=== PATIENT | female | born 1995 | race Caucasian/White ===

== ENCOUNTER 2016-07-18 20:20 | Emergency (ER) | payer SELFPAY ==
--- NOTE | 2016-07-18 20:24 | EDM.PDOC ---
ED HISTORY OF PRESENT ILLNESS - General Chief Complaint: Respiratory Problem Stated Complaint: PT HAS PNEUMONIA Time Seen by Provider: 07/18/16 20:24 Source of Information: Reports: Patient - History of Present Illness INITIAL COMMENTS - FREE TEXT/NARRATIVE: HISTORY AND PHYSICAL: History of present illness: [] Patient was seen on the one week of cough, he was treated with Levaquin and Cheratussin at that time, chest x-ray was significant for small infiltrate on the left. She has continued cough and now wheeze no fever nausea vomiting chills sweats chest pain headache dizziness or palpitation Patient had negative hCG 5 days prior she has not had sexual intercourse since Review of systems: As per history of present illness and below otherwise all systems reviewed and negative. Past medical history: As per history of present illness and as reviewed below otherwise noncontributory. Surgical history: As per history of present illness and as reviewed below otherwise noncontributory. Social history: No reported history of drug or alcohol abuse. Family history: As per history of present illness and as reviewed below otherwise noncontributory. Physical exam: HEENT: Atraumatic, normocephalic, pupils reactive, negative for conjunctival pallor or scleral icterus, mucous membranes moist, throat clear, neck supple, nontender, trachea midline. Lungs: Clear to auscultation, breath sounds equal bilaterally, chest nontender. Heart: S1S2, regular, negative for clicks, rubs, or JVD. Abdomen: Soft, nondistended, nontender. Negative for masses or hepatosplenomegaly. Negative for costovertebral tenderness. Pelvis: Stable nontender. Genitourinary: Deferred. Rectal: Deferred. Extremities: Atraumatic, negative for cords or calf pain. Neurovascular unremarkable. Neuro: Awake, alert, oriented. Cranial nerves II through XII unremarkable. Cerebellum unremarkable. Motor and sensory unremarkable throughout. Exam nonfocal. Diagnostics: [] Repeat chest x-ray 2 views Influenza Therapeutics: [] Dual neb Solu-Medrol 125 mg IM Chest pain Medrol Dosepak Complete previous medication Impression: [] Infiltrate on previous chest x-ray has cleared Acute bronchitis Likely sequela of influenza Definitive disposition and diagnosis as appropriate pending reevaluation and review of above. - Related Data Allergies/ADRs: Allergies Allergy/AdvReac Type Severity Reaction Status Date / Time No Known Allergies Allergy Verified 07/13/16 18:46 Home Meds: Home Meds . [No Known Home Meds] 07/13/16 [History] Past Medical History - Past Health History Medical/Surgical History: Denies Medical/Surgical History - Infectious Disease History Infectious Disease History: Reports: Chicken pox Social & Family History - Tobacco Use Smoking Status *Q: Current Every Day Smoker Years of Tobacco use: 4 Packs/Tins Daily: 0.2 - Caffeine Use Caffeine Use: Reports: Soda - Recreational Drug Use Recreational Drug Use: No ED ROS GENERAL - Review of Systems Review Of Systems: See Below ED EXAM, GENERAL - Physical Exam Exam: See Below Course - Vital Signs Last Recorded V/S: Last Vital Signs Temp 36.7 C 07/18/16 20:33 Pulse 109 H 07/18/16 20:33 Resp 20 07/18/16 20:33 BP 135/100 H 07/18/16 20:33 Pulse Ox 97 07/18/16 20:33 - Orders/Labs/Meds Orders: Active Orders 24 hr Category Date Time Status RT Aerosol Therapy [RC] ASDIRECTED Care 07/18/16 20:38 Active Chest 2V [CR] Stat Exams 07/18/16 20:24 Taken INFLUENZA A+B AG SCREEN [RM] Stat Lab 07/18/16 20:55 Received Meds: Medications Discontinued Medications Generic Name Dose Route Start Last Admin Trade Name Kimberly PRN Reason Stop Dose Admin Albuterol/Ipratropium 3 ml 07/18/16 20:37 07/18/16 20:44 Duoneb 3.0-0.5 Mg/3 Ml NEB 07/18/16 20:38 3 ml ONETIME ONE Administration Methylprednisolone Sodium Succinate 125 mg 07/18/16 20:37 07/18/16 20:53 Solu-Medrol IM 07/18/16 20:38 125 mg ONETIME ONE Administration Departure - Departure Time of Disposition: 21:23 Disposition: Home, Self-Care 01 Condition: good Clinical Impression: Acute bronchitis Forms: ED Department Discharge Additional Instructions: Complete previous medication as directed New medications as prescribed Followup with primary care as needed The following information is given to patients seen in the emergency department who are being discharged to home. This information is to outline your options for follow-up care. We provide all patients seen in our emergency department with a follow-up referral. The need for follow-up, as well as the timing and circumstances, are variable depending upon the specifics of your emergency department visit. If you don't have a primary care physician on staff, we will provide you with a referral. We always advise you to contact your personal physician following an emergency department visit to inform them of the circumstance of the visit and for follow-up with them and/or the need for any referrals to a consulting specialist. The emergency department will also refer you to a specialist when appropriate. This referral assures that you have the opportunity for follow-up care with a specialist. All of these measure are taken in an effort to provide you with optimal care, which includes your follow-up. Under all circumstances we always encourage you to contact your private physician who remains a resource for coordinating your care. When calling for follow-up care, please make the office aware that this follow-up is from your recent emergency room visit. If for any reason you are refused follow-up, please contact the [facility] emergency department at and asked to speak to the emergency department charge nurse. - My Orders Last 24 Hours: My Active Orders 07/18/16 20:24 Chest 2V [CR] Stat 07/18/16 20:38 RT Aerosol Therapy [RC] ASDIRECTED 07/18/16 20:55 INFLUENZA A+B AG SCREEN [RM] Stat - Assessment/Plan Last 24 Hours: My Active Orders 07/18/16 20:24 Chest 2V [CR] Stat 07/18/16 20:38 RT Aerosol Therapy [RC] ASDIRECTED 07/18/16 20:55 INFLUENZA A+B AG SCREEN [RM] Stat
[2016-07-18] MEDS ORDERED: methylPREDNISolone Sodium Succinate 125 MG/2 ML SDV IM ONE (20:37)
[2016-07-18] MEDS ORDERED: Albuterol/Ipratropium 3.0-0.5 MG/3 ML Neb Soln NEB ONE (20:37)
[2016-07-18 21:42] VITALS: BP 127/89
--- NOTE | 2016-07-19 17:52 | CR ---
EXAM DATE: 07/18/16 PATIENT'S AGE: 21 Patient: AAYUSH OWEN Facility: [place], [place] Site . Site : 1995 Study: XRay Chest [id number]/26/2017 9:09:08 PM Ordering Physician: Doctor Honeycutt Final Report: INDICATION: Pneumonia. Technique: PA and lateral chest x-ray. Comparison: Chest x-ray 07/13/2016. Findings: Heart size is normal. The mild opacity in the left lung base seen previously is no longer seen. Lungs are clear. Chest otherwise negative without acute disease. Dictated by Markus Yen MD @ Jul 18 2016 9:31PM (Electronic Signature) Report Signed by Proxy and Original Signed Document filed in the Medical Record. MTDD
== END 2016-07-18 21:41 | disposition home or self-care (01) ==
LOC: MW.ED 20:20
DX: J20.9 Acute bronchitis, unspecified (principal); F17.210 Nicotine dependence, cigarettes, uncomplicated
CPT/HCPCS: 71020; 87804; 94664; 96372; 99284; J2930

== ENCOUNTER 2016-08-09 17:51 | Emergency (ER) | payer SELFPAY ==
[2016-08-09] MEDS ORDERED: Albuterol/Ipratropium 3.0-0.5 MG/3 ML Neb Soln NEB ONE (18:25)
--- NOTE | 2016-08-09 18:56 | EDM.PDOC ---
ED HISTORY OF PRESENT ILLNESS - General Chief Complaint: Respiratory Problem Stated Complaint: PT HAS BRONCHITIS Time Seen by Provider: 08/09/16 18:20 Source of Information: Reports: Patient History Limitations: Reports: No limitations - History of Present Illness INITIAL COMMENTS - FREE TEXT/NARRATIVE: History of present illness: [21-year-old female returning with complaint of cough status post pneumonia resolution. Patient indicates that she had medication for bronchitis but has run out and now she feels like her symptoms are coming back.] Review of systems: As per history of present illness and below otherwise all systems reviewed and negative. Past medical history: As per history of present illness and as reviewed below otherwise noncontributory. Surgical history: As per history of present illness and as reviewed below otherwise noncontributory. Social history: No reported history of drug or alcohol abuse. Family history: As per history of present illness and as reviewed below otherwise noncontributory. Physical exam: HEENT: Atraumatic, normocephalic, pupils reactive, negative for conjunctival pallor or scleral icterus, mucous membranes moist, throat clear, neck supple, nontender, trachea midline. Lungs: End expiratory wheeze noted in the upper lobes bilaterally, otherwise breath sounds equal bilaterally, chest nontender. Heart: S1S2, regular, negative for clicks, rubs, or JVD. Abdomen: Soft, nondistended, nontender. Negative for masses or hepatosplenomegaly. Negative for costovertebral tenderness. Pelvis: Stable nontender. Genitourinary: Deferred. Rectal: Deferred. Extremities: Atraumatic, negative for cords or calf pain. Neurovascular unremarkable. Neuro: Awake, alert, oriented. Cranial nerves II through XII unremarkable. Cerebellum unremarkable. Motor and sensory unremarkable throughout. Exam nonfocal. Diagnostics: [] Therapeutics: [Duo neb] Impression: [Bronchitis] Plan: [Inhaler, Medrol Dosepak,spacer chamber] Definitive disposition and diagnosis as appropriate pending reevaluation and review of above. - Related Data Allergies/ADRs: Allergies Allergy/AdvReac Type Severity Reaction Status Date / Time No Known Allergies Allergy Verified 08/09/16 18:09 Home Meds: Home Meds Albuterol [Proventil HFA] 6.7 gm INH Q6H #1 inhaler 08/09/16 [Rx] Inhaler, Assist Devices [Space Chamber Plus] 1 each MC DAILY 30 Days 08/09/16 [ Rx] methylPREDNISolone [Medrol] 4 mg PO ASDIRECTED #21 dospk 08/09/16 [Rx] Past Medical History - Past Health History Medical/Surgical History: Denies Medical/Surgical History HEENT History: Reports: None Cardiovascular History: Reports: None Respiratory History: Reports: Other (see below) Other Respiratory History: pneumonia. bronchitis Psychiatric History: Reports: None - Infectious Disease History Infectious Disease History: Reports: Chicken pox - Past Surgical History HEENT Surgical History: Reports: None Cardiovascular Surgical History: Reports: None Female Surgical History: Reports: section Social & Family History - Family History Family Medical History: Noncontributory - Tobacco Use Smoking Status *Q: Former Smoker Years of Tobacco use: 4 Packs/Tins Daily: 0.2 Tobacco Use Comment: quit almost 1 month Second Hand Smoke Exposure: No - Caffeine Use Caffeine Use: Reports: Soda - Recreational Drug Use Recreational Drug Use: No ED ROS GENERAL - Review of Systems Review Of Systems: See Below (See history of present illness) ED EXAM, GENERAL - Physical Exam Exam: See Below (See history of present illness) Course - Vital Signs Last Recorded V/S: Last Vital Signs Temp 36.6 C 08/09/16 18:09 Pulse 109 H 08/09/16 18:09 Resp 16 08/09/16 18:09 BP 121/77 08/09/16 18:09 Pulse Ox 99 08/09/16 18:09 - Orders/Labs/Meds Orders: Active Orders 24 hr Category Date Time Status RT Aerosol Therapy [RC] ASDIRECTED Care 08/09/16 18:25 Active Meds: Medications Discontinued Medications Generic Name Dose Route Start Last Admin Trade Name Neftalyq PRN Reason Stop Dose Admin Albuterol/Ipratropium 3 ml 08/09/16 18:25 08/09/16 18:32 Duoneb 3.0-0.5 Mg/3 Ml NEB 08/09/16 18:26 3 ml ONETIME ONE Administration Departure - Departure Time of Disposition: 19:05 Disposition: Home, Self-Care 01 Condition: good Clinical Impression: Acute bronchitis Qualifiers: Bronchitis organism: unspecified organism Qualified Code(s): J20.9 - Acute bronchitis, unspecified Prescriptions: Albuterol [Proventil HFA] 6.7 gm INH Q6H #1 inhaler Inhaler, Assist Devices [Space Chamber Plus] 1 each MC DAILY 30 Days methylPREDNISolone [Medrol] 4 mg PO ASDIRECTED #21 dospk Forms: ED Department Discharge Additional Instructions: The following information is given to patients seen in the emergency department who are being discharged to home. This information is to outline your options for follow-up care. We provide all patients seen in our emergency department with a follow-up referral. The need for follow-up, as well as the timing and circumstances, are variable depending upon the specifics of your emergency department visit. If you don't have a primary care physician on staff, we will provide you with a referral. We always advise you to contact your personal physician following an emergency department visit to inform them of the circumstance of the visit and for follow-up with them and/or the need for any referrals to a consulting specialist. The emergency department will also refer you to a specialist when appropriate. This referral assures that you have the opportunity for follow-up care with a specialist. All of these measure are taken in an effort to provide you with optimal care, which includes your follow-up. Under all circumstances we always encourage you to contact your private physician who remains a resource for coordinating your care. When calling for follow-up care, please make the office aware that this follow-up is from your recent emergency room visit. If for any reason you are refused follow-up, please contact the [facility] Emergency Department at and asked to speak to the emergency department charge nurse. Take medication as directed Followup with primary care provider one to 2 days Return to ED as needed as discussed - My Orders Last 24 Hours: My Active Orders 08/09/16 18:25 RT Aerosol Therapy [RC] ASDIRECTED - Assessment/Plan Last 24 Hours: My Active Orders 08/09/16 18:25 RT Aerosol Therapy [RC] ASDIRECTED
[2016-08-09 19:16] VITALS: BP 116/73
== END 2016-08-09 19:11 | disposition home or self-care (01) ==
LOC: MW.ED 17:51
DX: J20.9 Acute bronchitis, unspecified (principal); Z79.899 Other long term (current) drug therapy; Z87.891 Personal history of nicotine dependence
CPT/HCPCS: 94664; 99283

== ENCOUNTER 2016-09-25 17:59 | Emergency (ER) | payer SELFPAY ==
[2016-09-25] MEDS ORDERED: Sodium Chloride 0.9% 1,000 ML IV ONE (18:28)
[2016-09-25] MEDS ORDERED: Sodium Chloride 0.9% 2.5 ML Syringe FLUSH PRN (18:29)
[2016-09-25] MEDS ORDERED: Sodium Chloride 0.9% 10 ML Syringe FLUSH PRN (18:29)
--- NOTE | 2016-09-25 18:34 | EDM.PDOC ---
<Pam Fraire - Last Filed: 09/25/16 19:27> ED HPI GENERAL MEDICAL PROBLEM - General Chief Complaint: Neurological Problem Stated Complaint: UNK Time Seen by Provider: 09/25/16 18:22 - History of Present Illness INITIAL COMMENTS - FREE TEXT/NARRATIVE: HISTORY AND PHYSICAL: History of present illness: The patient is a 21-year-old female with no stated medical problems who presents after a brief syncopal event while she was sitting on the toilet urinating. The patient states this has happened many times in the past but it usually only during her last 2 pregnancies. Patient says she's been feeling fine with no systemic complaints the last few days and has had no fevers chills cough chest pain shortness of breath abdominal pain vomiting or diarrhea. She's had no urinary complaints and her last regular period was September 09. She states she uses control and does not think that she is . She says she went to go to the bathroom and was sitting on the toilet when she felt very hot and flushed and then she felt like she had some tightness in her upper body and then she had a brief fainting episode where she fell off to the right side and hit her right forehead on the ground and she was immediately found by family because they heard "a bump". Patient also states she was only out briefly and felt a little nauseated right before she passed out but did not feel nauseated afterwards. She has no headache facial pain neck or back pain and no extremity complaints. She has no chest pain palpitations or shortness of breath. She complains of some mild pain at the laceration area only. She currently does not feel lightheaded Review of systems: As per history of present illness and below otherwise all systems reviewed and negative. Past medical history: As per history of present illness and as reviewed below otherwise noncontributory. Surgical history: As per history of present illness and as reviewed below otherwise noncontributory. Social history: No reported history of drug or alcohol abuse. Family history: As per history of present illness and as reviewed below otherwise noncontributory. Physical exam: General: Well-developed well-nourished female who is age-appropriate and moving all extremities without issue and is speaking clearly and easily in ED. HEENT: Atraumatic except for a 1.0 cm laceration seen just above the lateral aspect of her right eyebrow without much soft tissue swelling and no palpable bony deformities. There is no active bleeding. EOMs are intact,, normocephalic, pupils reactive, negative for conjunctival pallor or scleral icterus, mucous membranes moist, throat clear, neck supple, nontender, trachea midline. TMs are normal bilaterally, there are no midline step-offs or defects of the cervical spine and no other scalp defects deformities or swellings appreciated. Lungs: Clear to auscultation, breath sounds equal bilaterally, chest nontender. Heart: S1S2, regular, negative for clicks, rubs, or JVD. Abdomen: Soft, nondistended, nontender. Negative for masses or hepatosplenomegaly. Negative for costovertebral tenderness. Pelvis: Stable nontender. No lateral hip tenderness Genitourinary: Deferred. Rectal: Deferred. Extremities: Atraumatic, negative for cords or calf pain. Neurovascular unremarkable. Full range of motion without any defects or deficits and no tenderness at palpation Neuro: Awake, alert, oriented. Cranial nerves II through XII unremarkable. Cerebellum unremarkable. Motor and sensory unremarkable throughout. Exam nonfocal. Back: There are no midline step-offs tenderness or defects of the thoracic or lumbar spine no soft tissue abrasions ecchymosis or deformities and no posterior rib or posterior pelvis tenderness Diagnostics: EKG CBC CMP troponin serum hCG UA CT scan of the head orthostatic vitals Therapeutics: IV O2 monitor IV fluids wound care Impression: Brief syncopal event with right eyebrow laceration Definitive disposition and diagnosis as appropriate pending reevaluation and review of above. Treatments STUDENT SERVICES DEAN: Reports: Spinal immobilization Right Side of Head Pain Score (Numeric/FACES): 7 - Related Data Allergies Allergy/AdvReac Type Severity Reaction Status Date / Time No Known Allergies Allergy Verified 09/25/16 18:04 Home Meds: Home Meds Albuterol [Proventil HFA] 6.7 gm INH Q6H #1 inhaler 08/09/16 [Rx] Inhaler, Assist Devices [Space Chamber Plus] 1 each MC DAILY 30 Days 08/09/16 [ Rx] methylPREDNISolone [Medrol] 4 mg PO ASDIRECTED #21 dospk 08/09/16 [Rx] Past Medical History - Past Health History Medical/Surgical History: Denies Medical/Surgical History HEENT History: Reports: None Cardiovascular History: Reports: None Respiratory History: Reports: Asthma Other Respiratory History: pneumonia. 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: Neurological History: Reports: Other (see below) Other Neuro History: Sycope Psychiatric History: Reports: None - Infectious Disease History Infectious Disease History: Reports: Chicken pox - Past Surgical History HEENT Surgical History: Reports: None Cardiovascular Surgical History: Reports: None Female Surgical History: Reports: section Social & Family History - Family History Family Medical History: Noncontributory - Tobacco Use Smoking Status *Q: Current Every Day Smoker Years of Tobacco use: 3 Packs/Tins Daily: 1 Second Hand Smoke Exposure: No - Caffeine Use Caffeine Use: Reports: Soda - Recreational Drug Use Recreational Drug Use: No Course - Vital Signs Last Recorded V/S: Last Vital Signs Temp 36.6 C 09/25/16 18:04 Pulse 103 H 09/25/16 18:04 Resp 20 09/25/16 18:04 BP 123/73 09/25/16 18:04 Pulse Ox 98 09/25/16 18:28 Orthostatic Blood Pressure [ 124/83 Standing] Orthostatic Blood Pressure [ 113/82 Sitting] Orthostatic Blood Pressure [ 118/78 Supine] - Orders/Labs/Meds Orders: Active Orders 24 hr Category Date Time Status Cardiac Monitoring [RC] . DIRECTED Care 09/25/16 18:28 Active EKG 12 Lead [EKG Documentation Completion] [RC] STAT Care 09/25/16 18:09 Active Orthostatic Vital Signs [RC] ASDIRECTED Care 09/25/16 18:29 Active Oxygen Therapy, ED [RC] ASDIRECTED Care 09/25/16 18:28 Active Pulse Oximetry [RC] ASDIRECTED Care 09/25/16 18:28 Active Head wo Cont [CT] Stat Exams 09/25/16 18:28 Taken Sodium Chloride 0.9% [Saline Flush] Med 09/25/16 18:29 Active 10 ml FLUSH ASDIRECTED PRN Sodium Chloride 0.9% [Saline Flush] Med 09/25/16 18:29 Active 2.5 ml FLUSH ASDIRECTED PRN Saline Lock Insert [OM.PC] Stat Oth 09/25/16 18:28 Ordered Medication Orders Sodium Chloride (Saline Flush) 10 ml FLUSH ASDIRECTED PRN PRN Reason: Keep Vein Open Sodium Chloride (Saline Flush) 2.5 ml FLUSH ASDIRECTED PRN PRN Reason: Keep Vein Open Labs: Laboratory Tests 09/25/16 09/25/16 09/25/16 Range/Units 18:22 18:22 18:22 WBC 10.94 (4.0-11.0) K/uL RBC 4.98 (4.30-5.90) M/uL Hgb 15.5 (12.0-16.0) g/dL Hct 44.8 (36.0-46.0) % MCV 90.0 (80.0-98.0) fL MCH 31.1 (27.0-32.0) pg MCHC 34.6 (31.0-37.0) g/dL RDW Std Deviation 44.2 (28.0-62.0) fl RDW Coeff of Matthew 13 (11.0-15.0) % Plt Count 370 (150-400) K/uL MPV 9.80 (7.40-12.00) fL Neut % (Auto) 58.4 (48.0-80.0) % Lymph % (Auto) 26.8 (16.0-40.0) % Edgar % (Auto) 9.7 (0.0-15.0) % Eos % (Auto) 4.8 (0.0-7.0) % Baso % (Auto) 0.3 (0.0-1.5) % Neut # (Auto) 6.4 H (1.4-5.7) K/uL Lymph # (Auto) 2.9 H (0.6-2.4) K/uL Edgar # (Auto) 1.1 H (0.0-0.8) K/uL Eos # (Auto) 0.5 (0.0-0.7) K/uL Baso # (Auto) 0.0 (0.0-0.1) K/uL Nucleated RBC % 0.0 /100WBC Nucleated RBCs # 0 K/uL Sodium 137 (136-146) mmol/L Potassium 3.7 (3.5-5.1) mmol/L Chloride 108 (98-110) mmol/L Carbon Dioxide 18 L (21-31) mmol/L BUN 14 (6.0-23.0) mg/dL Creatinine 0.8 (0.6-1.5) mg/dL Est Cr Clr Drug Dosing 79.23 mL/min Estimated GFR (MDRD) > 60.0 ml/min Glucose 71 (60-110) mg/dL Calcium 9.1 (8.8-10.8) mg/dL Total Bilirubin 0.6 (0.1-1.5) mg/dL AST 19 (5-40) IU/L ALT 12 (8-54) IU/L Alkaline Phosphatase 70 (40-150) Troponin I (0.0-0.29) NG/ML Total Protein 7.5 (6.0-8.0) g/dL Albumin 4.1 (3.5-5.0) g/dL Globulin 3.4 (2.0-3.5) g/dL Albumin/Globulin Ratio 1.2 L (1.3-2.8) HCG, Quant < 1.2 mIU/mL Urine Color Urine Appearance Urine pH (5.0-8.0) Ur Specific [place] (1.001-1.035) Urine Protein (NEGATIVE) mg/dL Urine Glucose (UA) (NEGATIVE) mg/dL Urine Ketones (NEGATIVE) mg/dL Urine Occult Blood (NEGATIVE) Urine Nitrite (NEGATIVE) Urine Bilirubin (NEGATIVE) Urine Urobilinogen (<2.0) EU/dL Ur Leukocyte Esterase (NEGATIVE) Urine RBC (0-2/HPF) Urine WBC (0-5/HPF) Ur Epithelial Cells (NONE-FEW) Urine Bacteria (NEGATIVE) Urine Mucus (NONE-MOD) 09/25/16 09/25/16 Range/Units 18:22 19:15 WBC (4.0-11.0) K/uL RBC (4.30-5.90) M/uL Hgb (12.0-16.0) g/dL Hct (36.0-46.0) % MCV (80.0-98.0) fL MCH (27.0-32.0) pg MCHC (31.0-37.0) g/dL RDW Std Deviation (28.0-62.0) fl RDW Coeff of Matthew (11.0-15.0) % Plt Count (150-400) K/uL MPV (7.40-12.00) fL Neut % (Auto) (48.0-80.0) % Lymph % (Auto) (16.0-40.0) % Edgar % (Auto) (0.0-15.0) % Eos % (Auto) (0.0-7.0) % Baso % (Auto) (0.0-1.5) % Neut # (Auto) (1.4-5.7) K/uL Lymph # (Auto) (0.6-2.4) K/uL Edgar # (Auto) (0.0-0.8) K/uL Eos # (Auto) (0.0-0.7) K/uL Baso # (Auto) (0.0-0.1) K/uL Nucleated RBC % /100WBC Nucleated RBCs # K/uL Sodium (136-146) mmol/L Potassium (3.5-5.1) mmol/L Chloride (98-110) mmol/L Carbon Dioxide (21-31) mmol/L BUN (6.0-23.0) mg/dL Creatinine (0.6-1.5) mg/dL Est Cr Clr Drug Dosing mL/min Estimated GFR (MDRD) ml/min Glucose (60-110) mg/dL Calcium (8.8-10.8) mg/dL Total Bilirubin (0.1-1.5) mg/dL AST (5-40) IU/L ALT (8-54) IU/L Alkaline Phosphatase (40-150) Troponin I < 0.10 (0.0-0.29) NG/ML Total Protein (6.0-8.0) g/dL Albumin (3.5-5.0) g/dL Globulin (2.0-3.5) g/dL Albumin/Globulin Ratio (1.3-2.8) HCG, Quant mIU/mL Urine Color YELLOW Urine Appearance CLEAR Urine pH 6.0 (5.0-8.0) Ur Specific [place] 1.010 (1.001-1.035) Urine Protein NEGATIVE (NEGATIVE) mg/dL Urine Glucose (UA) NEGATIVE (NEGATIVE) mg/dL Urine Ketones NEGATIVE (NEGATIVE) mg/dL Urine Occult Blood NEGATIVE (NEGATIVE) Urine Nitrite NEGATIVE (NEGATIVE) Urine Bilirubin NEGATIVE (NEGATIVE) Urine Urobilinogen 0.2 (<2.0) EU/dL Ur Leukocyte Esterase NEGATIVE (NEGATIVE) Urine RBC 0-2 (0-2/HPF) Urine WBC 0-2 (0-5/HPF) Ur Epithelial Cells FEW (NONE-FEW) Urine Bacteria RARE (NEGATIVE) Urine Mucus LIGHT (NONE-MOD) Meds: Medications Generic Name Dose Route Start Last Admin Trade Name Kimberly PRN Reason Stop Dose Admin Sodium Chloride 10 ml 09/25/16 18:29 Saline Flush FLUSH ASDIRECTED PRN Keep Vein Open Sodium Chloride 2.5 ml 09/25/16 18:29 Saline Flush FLUSH ASDIRECTED PRN Keep Vein Open Discontinued Medications Generic Name Dose Route Start Last Admin Trade Name Freolivia PRN Reason Stop Dose Admin Sodium Chloride 1,000 mls @ 999 mls/hr 09/25/16 18:28 09/25/16 18:34 Normal Saline IV 09/25/16 19:28 999 mls/hr STAT ONE Administration Departure - Departure Disposition: Home, Self-Care 01 Clinical Impression: Vasovagal near syncope Instructions: Facial Laceration, Syncope, [id number] Referrals: PCP,None [Primary Care Provider] - Forms: ED Department Discharge Additional Instructions: Please folow up with PCP in [facility] in 48 to 72hours. Return to the Emergency Room as needed and discussed. <Diana Hoffmann - Last Filed: 09/25/16 22:05> ED ROS GENERAL - Review of Systems Review Of Systems: ROS reveals no pertinent complaints other than HPI. ED EXAM, GENERAL - Physical Exam Exam: See Below (see dictation) ED GENERAL MEDICAL PROCEDURES - Laceration/Wound Repair Right Lateral Face Lac/wound length in cm: 1.5 Appearance: subcutaneous, linear Distal NVT: neuro & vascular intact, no tendon injury Exploration/Debridement/Repair: wound explored Closed with: steri-strips Drain placement: No Tetanus status addressed: Yes Complications: No Departure - Departure Time of Disposition: 21:30 Condition: good
[2016-09-25 19:14] LABS: CHLORIDE,CL 108 mmol/L (98-110); SODIUM,NA 137 mmol/L (136-146)
[2016-09-26 03:55] VITALS: BP 119/74
--- NOTE | 2016-09-27 17:27 | CT ---
MNEXAM DATE: 09/25/16 PATIENT'S AGE: 21 Patient: AAYUSH OWEN Facility: [place], [place] Site . Site : 1995 Study: CT Head wo cont [id number]/6/2017 7:48:11 PM Ordering Physician: Juno Orozco Final Report: INDICATION: syncope TECHNIQUE: CT Head without contrast. COMPARISON: None. FINDINGS: There is no sign of intracranial hemorrhage or mass effect. Ventricles and sulci are symmetric and midline. The harris-white differentiation is preserved. No abnormal intra-axial or extra-axial fluid collection. No acute disease of the visualized paranasal sinuses and mastoid air cells. No fracture evident. No scalp hematoma/laceration. IMPRESSION: No acute intracranial process. Dictated by: James Garcia MD @ 09/25/2016 20:07:26 (Electronic Signature) Report Signed by Proxy. CANDE
== END 2016-09-25 21:39 | disposition home or self-care (01) ==
LOC: MW.ED 17:59
DX: R55 Syncope and collapse (principal); S01.111A Laceration without foreign body of right eyelid and periocular area, initial encounter; J45.909 Unspecified asthma, uncomplicated; F17.210 Nicotine dependence, cigarettes, uncomplicated; W18.09XA Striking against other object with subsequent fall, initial encounter
CPT/HCPCS: 36415; 70450; 80053; 81001; 84484; 84702; 85025; 93005; 96360; 99285; J7040; 99284

== ENCOUNTER 2017-05-12 06:54 | Emergency (ER) | payer SELFPAY ==
[2017-05-12] MEDS ORDERED: Sodium Chloride 0.9% 1,000 ML IV ONE (07:15)
[2017-05-12] MEDS ORDERED: Ondansetron 4 MG/2 ML SDV IVPUSH ONE (07:15)
--- NOTE | 2017-05-12 07:18 | EDM.PDOC ---
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 OB has essentially signed off for now. See OB note for detailed information No fever chills sweats no chest pain shortness breath headache dizziness palpitation no urine symptoms Review of systems: As per history of present illness and below otherwise all systems reviewed and negative. Past medical history: As per history of present illness and as reviewed below otherwise noncontributory. Surgical history: As per history of present illness and as reviewed below otherwise noncontributory. Social history: No reported history of drug or alcohol abuse. Family history: As per history of present illness and as reviewed below otherwise noncontributory. Physical exam: HEENT: Atraumatic, normocephalic, pupils reactive, negative for conjunctival pallor or scleral icterus, mucous membranes moist, throat clear, neck supple, nontender, trachea midline. Lungs: Clear to auscultation, breath sounds equal bilaterally, chest nontender. Heart: S1S2, regular, negative for clicks, rubs, or JVD. Abdomen: Soft, nondistended, nontender. Negative for masses or hepatosplenomegaly. Negative for costovertebral tenderness. Pelvis: Stable nontender. Genitourinary: Deferred. Rectal: Deferred. Extremities: Atraumatic, negative for cords or calf pain. Neurovascular unremarkable. Neuro: Awake, alert, oriented. Cranial nerves II through XII unremarkable. Cerebellum unremarkable. Motor and sensory unremarkable throughout. Exam nonfocal. Diagnostics: [Lab as below ]Influenza Therapeutics: [1 L normal saline Zofran 8 mg IV ] Zofran 8 mg ODT every 8 hours when necessary #30 no refill Impression: []Viral syndrome 35 weeks with IUP Cervix is closed Definitive disposition and diagnosis as appropriate pending reevaluation and review of above. abdominal Pain Score (Numeric/FACES): 8 - Related Data Allergies Allergy/AdvReac Type Severity Reaction Status Date / Time No Known Allergies Allergy Verified 05/12/17 07:07 Home Meds: Home Meds PNV95/Ferrous Fumarate/FA [ Tablet] 1 each PO DAILY 05/12/17 [History] Past Medical History - Past Health History Medical/Surgical History: Denies Medical/Surgical History HEENT History: Reports: None Cardiovascular History: Reports: None Respiratory History: Reports: Asthma Other Respiratory History: pneumonia. 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: Neurological History: Reports: Other (See Below) Other Neuro History: Sycope Psychiatric History: Reports: None Endocrine/Metabolic History: Reports: None - Infectious Disease History Infectious Disease History: Reports: Chicken Pox - Past Surgical History HEENT Surgical History: Reports: None Cardiovascular Surgical History: Reports: None Female Surgical History: Reports: Section Social & Family History - Family History Family Medical History: Noncontributory - Tobacco Use Smoking Status *Q: Former Smoker Years of Tobacco use: 3 Packs/Tins Daily: 1 Used Tobacco, but Quit: Yes Month Tobacco Last Used: september 2016 Second Hand Smoke Exposure: No - Caffeine Use Caffeine Use: Reports: Soda - Recreational Drug Use Recreational Drug Use: No ED ROS GENERAL - Review of Systems Review Of Systems: ROS reveals no pertinent complaints other than HPI. ED EXAM, GENERAL - Physical Exam Exam: See Below Course - Vital Signs Last Recorded V/S: Last Vital Signs Temp 97.8 F 05/12/17 07:08 Pulse 133 H 05/12/17 07:08 Resp 18 05/12/17 07:08 BP 113/88 05/12/17 07:08 Pulse Ox 95 05/12/17 07:08 - Orders/Labs/Meds Orders: Active Orders 24 hr Category Date Time Status UA W/MICROSCOPIC [URIN] Stat Lab 05/12/17 09:15 Results Labs: Laboratory Tests 05/12/17 05/12/17 05/12/17 Range/Units 07:30 07:30 09:15 WBC 13.31 H (4.0-11.0) K/uL RBC 4.32 (4.30-5.90) M/uL Hgb 12.6 (12.0-16.0) g/dL Hct 37.0 (36.0-46.0) % MCV 85.6 (80.0-98.0) fL MCH 29.2 (27.0-32.0) pg MCHC 34.1 (31.0-37.0) g/dL RDW Std Deviation 38.6 (28.0-62.0) fl RDW Coeff of Matthew 12 (11.0-15.0) % Plt Count 331 (150-400) K/uL MPV 10.40 (7.40-12.00) fL Neut % (Auto) 86.0 H (48.0-80.0) % Lymph % (Auto) 8.1 L (16.0-40.0) % [place] % (Auto) 5.8 (0.0-15.0) % Eos % (Auto) 0.0 (0.0-7.0) % Baso % (Auto) 0.1 (0.0-1.5) % Neut # (Auto) 11.5 H (1.4-5.7) K/uL Lymph # (Auto) 1.1 (0.6-2.4) K/uL [place] # (Auto) 0.8 (0.0-0.8) K/uL Eos # (Auto) 0.0 (0.0-0.7) K/uL Baso # (Auto) 0.0 (0.0-0.1) K/uL Nucleated RBC % 0.0 /100WBC Nucleated RBCs # 0 K/uL Sodium 135 L (136-146) mmol/L Potassium 3.6 (3.5-5.1) mmol/L Chloride 108 (98-110) mmol/L Carbon Dioxide 15 L (21-31) mmol/L BUN 7 (6.0-23.0) mg/dL Creatinine 0.6 (0.6-1.5) mg/dL Est Cr Clr Drug Dosing 104.74 mL/min Estimated GFR (MDRD) > 60.0 ml/min Glucose 100 (60-110) mg/dL Calcium 8.9 (8.8-10.8) mg/dL Total Bilirubin 0.7 (0.1-1.5) mg/dL AST 57 H (5-40) IU/L ALT 61 H (8-54) IU/L Alkaline Phosphatase 257 H (40-150) Total Protein 7.0 (6.0-8.0) g/dL Albumin 3.2 L (3.5-5.0) g/dL Globulin 3.8 H (2.0-3.5) g/dL Albumin/Globulin Ratio 0.8 L (1.3-2.8) Urine Color DARK YELLOW Urine Appearance CLEAR Urine pH 6.0 (5.0-8.0) Ur Specific [place] >= 1.030 (1.001-1.035) Urine Protein 30 (NEGATIVE) mg/dL Urine Glucose (UA) NEGATIVE (NEGATIVE) mg/dL Urine Ketones >=80 (NEGATIVE) mg/dL Urine Occult Blood NEGATIVE (NEGATIVE) Urine Nitrite NEGATIVE (NEGATIVE) Urine Bilirubin SMALL H (NEGATIVE) Urine Urobilinogen 0.2 (<2.0) EU/dL Ur Leukocyte Esterase NEGATIVE (NEGATIVE) Meds: Medications Discontinued Medications Generic Name Dose Route Start Last Admin Trade Name Freq PRN Reason Stop Dose Admin Sodium Chloride 1,000 mls @ 999 mls/hr 05/12/17 07:15 05/12/17 07:50 Normal Saline IV 05/12/17 08:15 999 mls/hr STAT ONE Administration Ondansetron HCl 8 mg 05/12/17 07:15 05/12/17 07:48 Zofran IVPUSH 05/12/17 07:16 8 mg ONETIME ONE Administration Departure - Departure Time of Disposition: 09:39 Disposition: Home, Self-Care 01 Condition: Good Clinical Impression: Viral syndrome, - Discharge Information Referrals: PCP,None [Primary Care Provider] - Forms: ED Department Discharge Additional Instructions: Medication as prescribed Return if symptoms persist or worsen Follow-up with OB as scheduled The following information is given to patients seen in the emergency department who are being discharged to home. This information is to outline your options for follow-up care. We provide all patients seen in our emergency department with a follow-up referral. The need for follow-up, as well as the timing and circumstances, are variable depending upon the specifics of your emergency department visit. If you don't have a primary care physician on staff, we will provide you with a referral. We always advise you to contact your personal physician following an emergency department visit to inform them of the circumstance of the visit and for follow-up with them and/or the need for any referrals to a consulting specialist. The emergency department will also refer you to a specialist when appropriate. This referral assures that you have the opportunity for follow-up care with a specialist. All of these measure are taken in an effort to provide you with optimal care, which includes your follow-up. Under all circumstances we always encourage you to contact your private physician who remains a resource for coordinating your care. When calling for follow-up care, please make the office aware that this follow-up is from your recent emergency room visit. If for any reason you are refused follow-up, please contact the [facility] emergency department at and asked to speak to the emergency department charge nurse. - My Orders Last 24 Hours: My Active Orders 05/12/17 09:15 UA W/MICROSCOPIC [URIN] Stat - Assessment/Plan Last 24 Hours: My Active Orders 05/12/17 09:15 UA W/MICROSCOPIC [URIN] Stat
[2017-05-12 07:59] LABS: CHLORIDE,CL 108 mmol/L (98-110); SODIUM,NA 135 mmol/L (136-146)
[2017-05-12 12:05] VITALS: BP 121/62
== END 2017-05-12 10:50 | disposition home or self-care (01) ==
LOC: MW.ED 06:54
DX: O98.513 Other viral diseases complicating pregnancy, third trimester (principal); B34.9 Viral infection, unspecified; Z87.891 Personal history of nicotine dependence; Z3A.35 35 weeks gestation of pregnancy; O09.33 Supervision of pregnancy with insufficient antenatal care, third trimester
CPT/HCPCS: 36415; 80053; 80305; 81001; 85025; 87081; 87804; 96361; 96374; 99284; J2405; J7040

== ENCOUNTER 2017-06-06 08:04 | Inpatient (IN) | payer SELFPAY ==
[2017-06-06] MEDS ORDERED: Sodium Chloride 0.9% 2.5 ML Syringe FLUSH PRN (09:08)
[2017-06-06] MEDS ORDERED: Sodium Chloride 0.9% 10 ML Syringe FLUSH PRN (09:08)
[2017-06-06] MEDS ORDERED: ceFAZolin 1 GM in Premix Bag 1 BAG IV ONE (09:08)
[2017-06-06] MEDS ORDERED: Citric Acid/Sodium Citrate Solution 30 ML Cup PO SCH (09:15)
[2017-06-06] MEDS ORDERED: Oxytocin/0.9 % Sodium Chloride 30 UNIT/500 ML BAG IV SCH (09:15)
[2017-06-06] MEDS: Lactated Ringers 1,000 ML IV SCH ×2 (10:00→10:30)
[2017-06-06] MEDS ORDERED: ePHEDrine 50 MG/ML SDV ONE (10:21)
[2017-06-06] MEDS ORDERED: Morphine PF 1 MG/ML Amp ONE (10:22)
[2017-06-06] MEDS ORDERED: Oxytocin/0.9 % Sodium Chloride 30 UNIT/500 ML BAG ONE (10:29)
--- NOTE | 2017-06-06 10:51 | PCM.PREANE ---
Preanesthetic Assessment - Procedure Proposed Procedure: Repeat - Anesthesia/Transfusion/Family Hx Anesthesia History: Prior Anesthesia Without Reaction Family History of Anesthesia Reaction: No Transfusion History: No Prior Transfusion(s) Intubation History: Unknown - Review of Systems General: No Symptoms Pulmonary: No Symptoms Cardiovascular: No Symptoms Gastrointestinal: No Symptoms Neurological: No Symptoms Other: Reports: None - Physical Assessment NPO Status Date: 06/06/17 NPO Status Time: 08:00 (sips of H2O - last food 06/05 @ 2100) Height: 4 ft 11 in Weight: 131 lb ASA Class: 2E Mental Status: Alert & Oriented x3 Airway Class: Mallampati = 2 Dentition: Reports: Normal Dentition ROM/Head Extension: Full Lungs: Clear to Auscultation, Normal Respiratory Effort Cardiovascular: Regular Rate, Regular Rhythm - Lab Values: Laboratory Last Values WBC 10.68 K/uL (4.0-11.0) 06/06/17 09:22 RBC 4.10 M/uL (4.30-5.90) L 06/06/17 09:22 Hgb 11.3 g/dL (12.0-16.0) L 06/06/17 09:22 Hct 34.0 % (36.0-46.0) L 06/06/17 09:22 MCV 82.9 fL (80.0-98.0) 06/06/17 09:22 MCH 27.6 pg (27.0-32.0) 06/06/17 09:22 MCHC 33.2 g/dL (31.0-37.0) 06/06/17 09:22 RDW Std Deviation 39.0 fl (28.0-62.0) 06/06/17 09:22 RDW Coeff of Matthew 13 % (11.0-15.0) 06/06/17 09:22 Plt Count 306 K/uL (150-400) 06/06/17 09:22 MPV 10.70 fL (7.40-12.00) 06/06/17 09:22 Nucleated RBC % 0.0 /100WBC 06/06/17 09:22 Nucleated RBCs # 0 K/uL 06/06/17 09:22 Blood Type O POSITIVE 06/06/17 09:22 Antibody Screen NEGATIVE 06/06/17 09: - Allergies Allergies/Adverse Reactions: Allergies Allergy/AdvReac Type Severity Reaction Status Date / Time No Known Allergies Allergy Verified 05/12/17 07:07 - Blood Blood Available: No Product(s) Available: None (T&S done) - Anesthesia Plan Free Text/Narrative:: SAB with backup GETA - Acknowledgements Anesthesia Type Planned: Spinal Pt an Appropriate Candidate for the Planned Anesthesia: Yes Alternatives and Risks of Anesthesia Discussed w Pt/Guardian: Yes Pt/Guardian Understands and Agrees with Anesthesia Plan: Yes PreAnesthesia Questionnaire - Past Health History Medical/Surgical History: Denies Medical/Surgical History HEENT History: Reports: None Cardiovascular History: Reports: None Respiratory History: Reports: Asthma Other Respiratory History: pneumonia. bronchitis Gastrointestinal History: Reports: None Genitourinary History: Reports: None [employer] History: Reports: Neurological History: Reports: Other (See Below) Other Neuro History: syncopal episodes with Psychiatric History: Reports: None Endocrine/Metabolic History: Reports: None - Infectious Disease History Infectious Disease History: Reports: Chicken Pox - Past Surgical History HEENT Surgical History: Reports: None Cardiovascular Surgical History: Reports: None GI Surgical History: Reports: Other (See Below) Other GI Surgeries/Procedures: esophageal surgery under a year of age with feeding tube insertion Female Surgical History: Reports: Section - SUBSTANCE USE Smoking Status *Q: Former Smoker (quit in September) Tobacco Use Within Last Twelve Months: Cigarettes Second Hand Smoke Exposure: Yes Recreational Drug Use History: No - HOME MEDS Home Medications: Home Meds PNV95/Ferrous Fumarate/FA [ Tablet] 1 each PO DAILY 05/12/17 [History] - CURRENT (IN HOUSE) MEDS Current Meds: Current Medications Citric Acid/Sodium Citrate (Bicitra Solution) 30 ml PO .ONCE ALICIA Lactated Ringer's (Ringers, Lactated) 1,000 mls @ 500 mls/hr IV .BOLUS ALICIA Last Admin: 06/06/17 10:30 Dose: 999 mls/hr Oxytocin/Sodium Chloride (Oxytocin 30 Unit/500 Ml-Ns) 30 unit in 500 mls @ 250 mls/hr IV TITRATE ALICIA Sodium Chloride (Saline Flush) 10 ml FLUSH ASDIRECTED PRN PRN Reason: Keep Vein Open Sodium Chloride (Saline Flush) 2.5 ml FLUSH ASDIRECTED PRN PRN Reason: Keep Vein Open Discontinued Medications Ephedrine Sulfate (Ephedrine Sulfate) Confirm Administered Dose 50 mg .ROUTE .STK-MED ONE Stop: 06/06/17 10:22 Cefazolin Sodium/Dextrose 1 gm (/ Premix) 50 mls @ 100 mls/hr IV ONETIME ONE Stop: 06/06/17 09:37 Cefazolin Sodium/Dextrose (Ancef) Confirm Administered Dose 50 mls @ as directed .ROUTE .STK-MED ONE Stop: 06/06/17 10:25 Oxytocin/Sodium Chloride (Oxytocin 30 Unit/500 Ml-Ns) Confirm Administered Dose 30 unit in 500 mls @ as directed .ROUTE .STK-MED ONE Stop: 06/06/17 10:30 Morphine Sulfate (Duramorph Pf) Confirm Administered Dose 1 mg .ROUTE .STK-MED ONE Stop: 06/06/17 10:23
[2017-06-06] MEDS ORDERED: Ondansetron 4 MG/2 ML SDV ONE (11:34)
[2017-06-06] MEDS ORDERED: Naloxone 0.4 MG/ML Syringe IVPUSH PRN (11:54)
[2017-06-06] MEDS ORDERED: Nalbuphine 10 MG/1 ML Vial IVPUSH PRN (11:54)
[2017-06-06] MEDS ORDERED: Acetaminophen/oxyCODONE 325-5 MG Tab PO PRN (11:55)
[2017-06-06] MEDS ORDERED: fentaNYL 100 MCG/2 ML SDV IVPUSH PRN (11:55)
[2017-06-06] MEDS ORDERED: diphenhydrAMINE 50 MG/ML SDV IVPUSH PRN (12:49)
[2017-06-06] MEDS ORDERED: Bisacodyl 10 MG Supp RECTAL PRN (12:49)
[2017-06-06] MEDS ORDERED: Lanolin 100% Cream 7 GM Tube TOP PRN (12:49)
[2017-06-06] MEDS ORDERED: Ondansetron 4 MG/2 ML SDV IV PRN (12:49)
--- NOTE | 2017-06-06 12:57 | PCM.OPNOTE ---
- General Post-Op/Procedure Note Date of Surgery/Procedure: 06/06/17 Operative Procedure(s): Tertiary Lower transerve and Bilateral tubal ligation via modified johan Findings: Live female delivered , 9/9 , Weight 3080g . Normal uterus tubes and ovaries . Bilateral tubal ligation via modified johan Pre Op Diagnosis: Previous X 2 in labor. Multipara desiring sterilization Post-Op Diagnosis: same Anesthesia Technique: General ET Tube Primary Surgeon: Annie Bauman Anesthesia Provider: Osvaldo Burnett Split Fluid Replacement, Intraop: 2,000 Output, Urine Amount: 400 EBL in mLs: 600 Complications: None Condition: Good Free Text/Narrative:: Intake & Output 06/05/17 06/06/17 06/06/17 22:59 06:59 14:59 Output Total 400 Balance -400
[2017-06-06] MEDS: Ketorolac 30 MG/ML SDV IVPUSH SCH ×2 (12:59→19:05)
[2017-06-06] MEDS ORDERED: Lactated Ringers 1,000 ML IV SCH (13:00)
--- NOTE | 2017-06-06 13:22 | PCM.POSTAN ---
POST ANESTHESIA ASSESSMENT - MENTAL STATUS Mental Status: Alert, Oriented - RESPIRATORY Respiratory Status: Respiratory Rate WNL, Airway Patent, O2 Saturation Stable - CARDIOVASCULAR CV Status: Pulse Rate WNL, Blood Pressure Stable - GASTROINTESTINAL GI Status: No Symptoms - PAIN Pain Score: 0 - POST OP HYDRATION Hydration Status: Adequate & Stable
[2017-06-06] MEDS: diphenhydrAMINE 50 MG/ML SDV IVPUSH PRN ×2 (14:23→19:10)
[2017-06-06] MEDS: Docusate Sodium 100 MG Cap PO SCH (21:05)
[2017-06-07] MEDS: Ketorolac 30 MG/ML SDV IVPUSH SCH ×3 (00:34→13:26)
--- NOTE | 2017-06-07 04:56 | PCM48HPAN ---
Post Anesthesia Note - EVALUATION WITHIN 48HRS OF ANESTHETIC Vital Signs in Normal Range: Yes Patient Participated in Evaluation: Yes Respiratory Function Stable: Yes Airway Patent: Yes Cardiovascular Function Stable: Yes Hydration Status Stable: Yes Pain Control Satisfactory: Yes Nausea and Vomiting Control Satisfactory: Yes Mental Status Recovered: Yes
[2017-06-07] MEDS: Docusate Sodium 100 MG Cap PO SCH ×2 (09:04→21:30)
[2017-06-07] MEDS: Acetaminophen/oxyCODONE 325-5 MG Tab PO PRN ×2 (12:47→18:14)
--- NOTE | 2017-06-07 17:39 | PCM.PNPP ---
- General Info Date of Service: 06/07/17 Admission Dx/Problem (Free Text): 22 yo P3 s/p Tertiary LTCS and BTL Subjective Update: Patient seen at bedside , she has good pain control , she is tolerating regular diet , morel removed early am , yet to void as at 8am. ahe is ambulating Functional Status: Reports: Pain Controlled, Tolerating Diet, Ambulating, Incentive Spirometry - Review of Systems General: Reports: No Symptoms HEENT: Reports: No Symptoms Pulmonary: Reports: No Symptoms Cardiovascular: Reports: No Symptoms Gastrointestinal: Reports: No Symptoms Genitourinary: Reports: No Symptoms Musculoskeletal: Reports: No Symptoms Skin: Reports: No Symptoms Neurological: Reports: No Symptoms Psychiatric: Reports: No Symptoms - General Info Date of Service: 06/07/17 - Patient Data Vital Signs - Most Recent: Last Vital Signs Temp 36.7 C 06/07/17 16:00 Pulse 80 06/07/17 16:00 Resp 15 06/07/17 16:00 BP 121/73 06/07/17 16:00 Pulse Ox 96 06/07/17 16:00 Weight - Most Recent: 59.421 kg I&O - Last 24 Hours: Intake & Output 06/07/17 06/07/17 06/07/17 06:59 14:59 22:59 Output Total 300 Balance -300 Lab Results - Last 24 Hours: Laboratory Results - last 24 hr 06/07/17 Range/Units 05:12 Hgb 10.5 L (12.0-16.0) g/dL Hct 31.9 L (36.0-46.0) % Med Orders - Current: Current Medications Bisacodyl (Dulcolax) 10 mg RECTAL .ONCE PRN PRN Reason: Constipation Citric Acid/Sodium Citrate (Bicitra Solution) 30 ml PO .ONCE ALICIA Diphenhydramine HCl (Benadryl) 25 mg IVPUSH Q6H PRN PRN Reason: Itching or Nausea Docusate Sodium (Colace) 100 mg PO BID [facility] Last Admin: 06/07/17 09:04 Dose: 100 mg Emollient Ointment (Lansinoh Hpa) 0 gm TOP ASDIRECTED PRN PRN Reason: Sore Nipples Fentanyl (Sublimaze) 25 - 50 mcg IVPUSH Q30M PRN PRN Reason: Pain Lactated Ringer's (Ringers, Lactated) 1,000 mls @ 500 mls/hr IV .BOLUS ALICIA Last Admin: 06/06/17 10:30 Dose: 999 mls/hr Oxytocin/Sodium Chloride (Oxytocin 30 Unit/500 Ml-Ns) 30 unit in 500 mls @ 250 mls/hr IV TITRATE ALICIA Lactated Ringer's (Ringers, Lactated) 1,000 mls @ 125 mls/hr IV ASDIRECTED [facility] Last Admin: 06/06/17 14:25 Dose: 125 mls/hr Ibuprofen (Motrin) 800 mg PO Q8H PRN PRN Reason: mild pain or fever Ondansetron HCl (Zofran) 4 mg IV Q4H PRN PRN Reason: Nausea/Vomiting Oxycodone/Acetaminophen (Percocet 325-5 Mg) 1 - 2 tab PO Q6H PRN PRN Reason: Pain Stop: 06/08/17 14:00 Oxycodone/Acetaminophen (Percocet 325-5 Mg) 1 tab PO Q4H PRN PRN Reason: Pain (moderate 4-6) Last Admin: 06/07/17 12:47 Dose: 1 tab Oxycodone/Acetaminophen (Percocet 325-5 Mg) 2 tab PO Q4H PRN PRN Reason: Pain (moderate 4-6) Sodium Chloride (Saline Flush) 10 ml FLUSH ASDIRECTED PRN PRN Reason: Keep Vein Open Sodium Chloride (Saline Flush) 2.5 ml FLUSH ASDIRECTED PRN PRN Reason: Keep Vein Open Discontinued Medications Diphenhydramine HCl (Benadryl) 25 mg IVPUSH Q4H PRN PRN Reason: Itching Stop: 06/07/17 11:54 Last Admin: 06/06/17 19:10 Dose: 25 mg Ephedrine Sulfate (Ephedrine Sulfate) Confirm Administered Dose 50 mg .ROUTE .STK-MED ONE Stop: 06/06/17 10:22 Cefazolin Sodium/Dextrose 1 gm (/ Premix) 50 mls @ 100 mls/hr IV ONETIME ONE Stop: 06/06/17 09:37 Cefazolin Sodium/Dextrose (Ancef) Confirm Administered Dose 50 mls @ as directed .ROUTE .STK-MED ONE Stop: 06/06/17 10:25 Oxytocin/Sodium Chloride (Oxytocin 30 Unit/500 Ml-Ns) Confirm Administered Dose 30 unit in 500 mls @ as directed .ROUTE .STK-MED ONE Stop: 06/06/17 10:30 Ketorolac Tromethamine (Toradol) 30 mg IVPUSH Q6H ALICIA Stop: 06/07/17 13:01 Last Admin: 06/07/17 13:26 Dose: Not Given Morphine Sulfate (Duramorph Pf) Confirm Administered Dose 1 mg .ROUTE .STK-MED ONE Stop: 06/06/17 10:23 Nalbuphine HCl (Nubain) 5 mg IVPUSH Q3H PRN PRN Reason: Pruritis Stop: 06/07/17 11:54 Last Admin: 06/06/17 22:29 Dose: 5 mg Naloxone HCl (Narcan) 0.1 mg IVPUSH ONETIME PRN PRN Reason: Other Stop: 06/07/17 11:54 Ondansetron HCl (Zofran) Confirm Administered Dose 4 mg .ROUTE .STK-MED ONE Stop: 06/06/17 11:35 - Infant Interaction Support Person: - Recovery Exam Fundal Tone: Firm Fundal Level: 2 Fingerbreadths Below Umbilicus Fundal Placement: Midline Lochia Amount: Scant Lochia Color: Rubra/Red Perineum Description: Intact, Minimal Bruising/Swelling Episiotomy/Laceration: None Bladder Status: Voiding Urinary Elimination: Voided - Exam General: Alert, Oriented HEENT: Pupils Equal Neck: Supple Lungs: Clear to Auscultation Cardiovascular: Regular Rate, Regular Rhythm GI/Abdominal Exam: Soft (pfannestiel skin incision with wound dressing in place c/d/i) Extremities: Normal Inspection Psy/Mental Status: Alert - Problem List & Annotations (1) delivery delivered SNOMED Code(s): 733281668 Code(s): O82 - ENCOUNTER FOR DELIVERY WITHOUT INDICATION Status: Acute Current Visit: Yes (2) Tubal ligation status SNOMED Code(s): 26019290216742, 09009025984823 Code(s): Z98.51 - TUBAL LIGATION STATUS Status: Acute Current Visit: Yes - Problem List Review Problem List Initiated/Reviewed/Updated: Yes - My Orders Last 24 Hours: My Active Orders 06/06/17 21:00 Docusate Sodium [Colace] 100 mg PO BID - Assessment Assessment:: 22 yo P3 s/p Tertiary LTCS and BTL , minimal lochia , stable - Plan Plan:: Encourage ambulation Pain control as needed Follow urinary void Routine care
[2017-06-07] MEDS: Ibuprofen 800 MG Tab PO PRN (21:30)
[2017-06-08] MEDS: Acetaminophen/oxyCODONE 325-5 MG Tab PO PRN ×2 (02:56→12:39)
[2017-06-08] MEDS: Ibuprofen 800 MG Tab PO PRN ×2 (05:07→12:39)
[2017-06-08] MEDS: Docusate Sodium 100 MG Cap PO SCH (08:28)
--- NOTE | 2017-06-08 08:53 | PCM.PNPP ---
- General Info Date of Service: 06/08/17 Admission Dx/Problem (Free Text): 22 yo P3 s/p Tertiary LTCS and BTL POD2 Subjective Update: Patient seen at bedside , she has good pain control , she is tolerating regular diet , voiding , she is ambulating Functional Status: Reports: Pain Controlled, Tolerating Diet, Ambulating, Urinating - Review of Systems General: Reports: No Symptoms HEENT: Reports: No Symptoms Pulmonary: Reports: No Symptoms Cardiovascular: Reports: No Symptoms Gastrointestinal: Reports: No Symptoms Genitourinary: Reports: No Symptoms Musculoskeletal: Reports: No Symptoms Skin: Reports: No Symptoms Neurological: Reports: No Symptoms Psychiatric: Reports: No Symptoms - General Info Date of Service: 06/08/17 - Patient Data Vital Signs - Most Recent: Last Vital Signs Temp 36.2 C 06/08/17 08:00 Pulse 69 06/08/17 08:00 Resp 20 06/08/17 08:00 BP 107/76 06/08/17 08:00 Pulse Ox 95 06/08/17 04:00 Weight - Most Recent: 59.421 kg Med Orders - Current: Current Medications Bisacodyl (Dulcolax) 10 mg RECTAL .ONCE PRN PRN Reason: Constipation Citric Acid/Sodium Citrate (Bicitra Solution) 30 ml PO .ONCE ALICIA Diphenhydramine HCl (Benadryl) 25 mg IVPUSH Q6H PRN PRN Reason: Itching or Nausea Docusate Sodium (Colace) 100 mg PO BID [facility] Last Admin: 06/08/17 08:28 Dose: 100 mg Emollient Ointment (Lansinoh Hpa) 0 gm TOP ASDIRECTED PRN PRN Reason: Sore Nipples Fentanyl (Sublimaze) 25 - 50 mcg IVPUSH Q30M PRN PRN Reason: Pain Lactated Ringer's (Ringers, Lactated) 1,000 mls @ 500 mls/hr IV .BOLUS [facility] Last Admin: 06/06/17 10:30 Dose: 999 mls/hr Oxytocin/Sodium Chloride (Oxytocin 30 Unit/500 Ml-Ns) 30 unit in 500 mls @ 250 mls/hr IV TITRATE ALICIA Lactated Ringer's (Ringers, Lactated) 1,000 mls @ 125 mls/hr IV ASDIRECTED [facility] Last Admin: 06/06/17 14:25 Dose: 125 mls/hr Ibuprofen (Motrin) 800 mg PO Q8H PRN PRN Reason: mild pain or fever Last Admin: 06/08/17 05:07 Dose: 800 mg Ondansetron HCl (Zofran) 4 mg IV Q4H PRN PRN Reason: Nausea/Vomiting Oxycodone/Acetaminophen (Percocet 325-5 Mg) 1 - 2 tab PO Q6H PRN PRN Reason: Pain Stop: 06/08/17 14:00 Last Admin: 06/08/17 08:31 Dose: 2 tab Oxycodone/Acetaminophen (Percocet 325-5 Mg) 1 tab PO Q4H PRN PRN Reason: Pain (moderate 4-6) Last Admin: 06/07/17 18:14 Dose: 1 tab Oxycodone/Acetaminophen (Percocet 325-5 Mg) 2 tab PO Q4H PRN PRN Reason: Pain (moderate 4-6) Last Admin: 06/08/17 02:56 Dose: 2 tab Sodium Chloride (Saline Flush) 10 ml FLUSH ASDIRECTED PRN PRN Reason: Keep Vein Open Sodium Chloride (Saline Flush) 2.5 ml FLUSH ASDIRECTED PRN PRN Reason: Keep Vein Open Discontinued Medications Diphenhydramine HCl (Benadryl) 25 mg IVPUSH Q4H PRN PRN Reason: Itching Stop: 06/07/17 11:54 Last Admin: 06/06/17 19:10 Dose: 25 mg Ephedrine Sulfate (Ephedrine Sulfate) Confirm Administered Dose 50 mg .ROUTE .STK-MED ONE Stop: 06/06/17 10:22 Cefazolin Sodium/Dextrose 1 gm (/ Premix) 50 mls @ 100 mls/hr IV ONETIME ONE Stop: 06/06/17 09:37 Cefazolin Sodium/Dextrose (Ancef) Confirm Administered Dose 50 mls @ as directed .ROUTE .STK-MED ONE Stop: 06/06/17 10:25 Oxytocin/Sodium Chloride (Oxytocin 30 Unit/500 Ml-Ns) Confirm Administered Dose 30 unit in 500 mls @ as directed .ROUTE .STK-MED ONE Stop: 06/06/17 10:30 Ketorolac Tromethamine (Toradol) 30 mg IVPUSH Q6H ALICIA Stop: 06/07/17 13:01 Last Admin: 06/07/17 13:26 Dose: Not Given Morphine Sulfate (Duramorph Pf) Confirm Administered Dose 1 mg .ROUTE .STK-MED ONE Stop: 06/06/17 10:23 Nalbuphine HCl (Nubain) 5 mg IVPUSH Q3H PRN PRN Reason: Pruritis Stop: 06/07/17 11:54 Last Admin: 06/06/17 22:29 Dose: 5 mg Naloxone HCl (Narcan) 0.1 mg IVPUSH ONETIME PRN PRN Reason: Other Stop: 06/07/17 11:54 Ondansetron HCl (Zofran) Confirm Administered Dose 4 mg .ROUTE .STK-MED ONE Stop: 06/06/17 11:35 - Interaction Support Person: - Recovery Exam Fundal Tone: Firm Fundal Level: 1 Fingerbreadths Below Umbilicus Fundal Placement: Midline Lochia Amount: Scant Lochia Color: Rubra/Red Perineum Description: Intact, Minimal Bruising/Swelling Episiotomy/Laceration: None Bladder Status: Voiding Urinary Elimination: Voided - Exam HEENT: Pupils Equal Neck: Supple Lungs: Clear to Auscultation Cardiovascular: Irregular Rhythm GI/Abdominal Exam: Normal Bowel Sounds (pfannestiel skin incision with steristrips in place c/d/i ) Extremities: Normal Inspection - Problem List & Annotations (1) delivery delivered SNOMED Code(s): 213335361 Code(s): O82 - ENCOUNTER FOR DELIVERY WITHOUT INDICATION Status: Acute Current Visit: Yes (2) Tubal ligation status SNOMED Code(s): 55472279246142, 68665476609532 Code(s): Z98.51 - TUBAL LIGATION STATUS Status: Acute Current Visit: Yes - Problem List Review Problem List Initiated/Reviewed/Updated: Yes - My Orders Last 24 Hours: My Active Orders 06/08/17 08:46 EKG 12 Lead [EKG Documentation Completion] [RC] STAT 06/08/17 08:48 Ready for Discharge [RC] PER UNIT ROUTINE 06/08/17 Breakfast Regular Diet [DIET] - Assessment Assessment:: 22 yo P3 s/p Tertiary LTCS and BTL , minimal lochia , stable , POD2 - Plan Plan:: Encourage ambulation EKG, will call medicine consult based on results Possible discharge today Routine care
[2017-06-08 09:34] LABS: CHLORIDE,CL 106 mmol/L (98-110); SODIUM,NA 136 mmol/L (136-146)
[2017-06-08 15:13] VITALS: BP 113/68
--- NOTE | 2017-06-09 13:36 | OR ---
SURGEON: AMY PHILLIPS DATE OF PROCEDURE: 06/06/2017 PREOPERATIVE DIAGNOSES: A 22-year-old, G3, P2-0-0-2 at 39 weeks and 0 days, history of previous C- section x2 with contractions, also multipara, desiring permanent sterilization. POSTOPERATIVE DIAGNOSES: A 22-year-old, G3, P2-0-0-2 at 39 weeks and 0 days, history of previous C- section x2 with contractions, also multipara, desiring permanent sterilization. OPERATION: 1. Tertiary lower transverse section. 2. Bilateral tubal ligation via modified Bayron method. ESTIMATED BLOOD LOSS: 600 mL. IV FLUID: 2000 mL. URINE OUTPUT: 400 mL clear urine. FINDINGS: Live female , delivered at 1125 hours. scores were 9 and 9, weight was 3080 g. Normal uterus, tubes, and ovaries. Bilateral tubal ligation done via modified Bayron method. INDICATIONS: She was a 22-year-old, G3, P2-0-0-2 at 39 weeks and 2 days, who was a late registrant at 35 weeks. She had 2 clinic visits. The patient came in in labor . Patient also wanted permanent sterilization, which was approved by the ethics committee. The patient had this procedure approved.The patient, because of contractions, was then consented for tertiary and BTL. She explained the risks, benefits, and alternatives. VE; 06/21.-3 DESCRIPTION OF PROCEDURE: The patient was taken to the operating room, where general anesthesia was performed without difficulty. The patient was placed in the dorsal supine position with a leftward tilt. A Pfannenstiel incision was made on the level of the previous incision. The incision was carried from the skin to the fascia. The fascia was incised and extended laterally. The fascia was then elevated with a Sharon clamp and off the rectus muscle. This was done superiorly and inferiorly. The rectus muscle was in the midline down to the level of the pubic symphysis with gradual entry with the aid of the Allis to elevate the rectus muscle and the hemostat to machine operator hop picker the peritoneum. The abdomen was entered and the bladder flap was created and the lower uterine incision was made. The was in cephalic position. The head was elevated to the level of the uterine incision. The fundal pressure was used to aid in delivery of the baby. Delayed cord clamping was observed. Cord blood gases were taken, and the cord was clamped and cut. The was handed over to the awaiting nurse. The uterus was then massaged and the IV Pitocin was running. The interior of the uterus was cleaned with moist laparotomy sponge. The uterine incision was then closed in one layer. Hemostasis was noted after closure. Then the uterus was then exteriorized, and the right tube was identified with a [place] and held at the isthmus . The modified Bayron technique was used, and 0 chromic was used to tie the tubes. The tube was double tied, and the knuckle above was excised with the Metzenbaum scissors. The same was done to the left tube with a Danyell, it was used to elevate the tube and double tied and the adjoining fallopian tube was cut off and sent for pathology. The uterus was then placed back into the abdomen. The peritoneum was closed. The rectus muscle was closed with 3 interrupted mattress stitches. The fascia was closed also. The subcutaneous flaps were also closed in a continuous fashion. The skin was closed with 4-0 Vicryl on a Brian needle. The instrument and pad counts were correct x2. The patient tolerated the procedure well and was taken to the recovery room in stable condition. OLIVER STOUT /[id number]
== END 2017-06-08 15:35 | disposition home or self-care (01) | DRG 766 ==
LOC: MW.OBCHECK 08:04 → MW.OB 08:08 → MW.OBCHECK 09:00 → MW.OB 09:08
PROVIDERS: ADMIT Obstetrics & Gynecology; ATTEND Obstetrics & Gynecology
PROC: 10D00Z1 Extraction of Products of Conception, Low, Open Approach (ICD-10-PCS; principal; 2017-06-06)
PROC: 0UB70ZZ Excision of Bilateral Fallopian Tubes, Open Approach (ICD-10-PCS; 2017-06-06)
DX: O34.211 Maternal care for low transverse scar from previous cesarean delivery (principal); Z3A.39 39 weeks gestation of pregnancy; Z37.0 Single live birth; Z30.2 Encounter for sterilization
CPT/HCPCS: 01961; 36415; 59025; 80048; 80305; 83735; 85014; 85018; 85027; 86850; 86900; 86901; 88302; 93005; A9270-GY; J0690; J1200; J1885; J2274; J2300; J2405; J7120

== ENCOUNTER 2018-01-08 22:50 | Emergency (ER) | payer SELFPAY ==
--- NOTE | 2018-01-08 23:03 | EDM.PDOC ---
ED HPI GENERAL MEDICAL PROBLEM - General Chief Complaint: Skin Complaint Stated Complaint: TOOTH INFECTION AND RASH ON FORHEAD Time Seen by Provider: 01/08/18 22:55 - History of Present Illness INITIAL COMMENTS - FREE TEXT/NARRATIVE: HISTORY AND PHYSICAL: History of present illness: Patient's 22-year-old female who presents with a concern of a rash to her left forehead and left upper tooth pain with facial swelling Review of systems: As per history of present illness and below otherwise all systems reviewed and negative. Past medical history: As per history of present illness and as reviewed below otherwise noncontributory. Surgical history: As per history of present illness and as reviewed below otherwise noncontributory. Social history: No reported history of drug or alcohol abuse. Family history: As per history of present illness and as reviewed below otherwise noncontributory. Physical exam: HEENT: Patient is too small vesicular areas on her left forehead with some scattered erythema consistent with a contact dermatitis she states this has been extremely pruritic Atraumatic, normocephalic, pupils reactive, negative for conjunctival pallor or scleral icterus, mucous membranes moist, throat clear , neck supple, nontender, trachea midline. Extremely poor general dentition with multiple dental caries and gingival edema in the region of her left upper molars as well as swelling to her left face in the region of the maxilla Lungs: Clear to auscultation, breath sounds equal bilaterally, chest nontender. Heart: S1S2, regular, negative for clicks, rubs, or JVD. Abdomen: Soft, nondistended, nontender. Negative for masses or hepatosplenomegaly. Negative for costovertebral tenderness. Pelvis: Stable nontender. Genitourinary: Deferred. Rectal: Deferred. Extremities: Atraumatic, negative for cords or calf pain. Neurovascular unremarkable. Neuro: Awake, alert, oriented. Cranial nerves II through XII unremarkable. Cerebellum unremarkable. Motor and sensory unremarkable throughout. Exam nonfocal. Diagnostics: None Therapeutics: None Impression: Were 1 dentalgia #2 dental abscess #3 rash Definitive disposition and diagnosis as appropriate pending reevaluation and review of above. rash and jaw Pain Score (Numeric/FACES): 9 - Related Data Allergies Allergy/AdvReac Type Severity Reaction Status Date / Time No Known Allergies Allergy Verified 01/08/18 22:59 Past Medical History - Past Health History Medical/Surgical History: Denies Medical/Surgical History HEENT History: Reports: None Cardiovascular History: Reports: None Respiratory History: Reports: Asthma Other Respiratory History: pneumonia. 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: Neurological History: Reports: Other (See Below) Other Neuro History: syncopal episodes with Psychiatric History: Reports: None Endocrine/Metabolic History: Reports: None - Infectious Disease History Infectious Disease History: Reports: Chicken Pox - Past Surgical History HEENT Surgical History: Reports: None Cardiovascular Surgical History: Reports: None GI Surgical History: Reports: Other (See Below) Other GI Surgeries/Procedures: esophageal surgery under a year of age with feeding tube insertion Female Surgical History: Reports: Section Social & Family History - Family History Family Medical History: Noncontributory Cardiac: Reports: Congenital Septal Defect, Syncope Respiratory: Reports: COPD OBGYN: Reports: Neurological: Reports: CVA Endocrine/Metabolic: Reports: Diabetes, type II - Caffeine Use Caffeine Use: Reports: Soda ED ROS GENERAL - Review of Systems Review Of Systems: ROS reveals no pertinent complaints other than HPI. ED EXAM, SKIN/RASH Exam: See Below (See dictation) Course - Vital Signs Last Recorded V/S: Last Vital Signs Temp 36.2 C 01/08/18 22:56 Pulse 91 01/08/18 22:56 Resp 12 01/08/18 22:56 BP 143/94 H 01/08/18 22:56 Pulse Ox 99 01/08/18 22:56 Departure - Departure Time of Disposition: 23:01 Disposition: Home, Self-Care 01 Condition: Good Clinical Impression: Dentalgia, Dental abscess, Rash - Discharge Information *PRESCRIPTION DRUG MONITORING PROGRAM REVIEWED*: Not Applicable *COPY OF PRESCRIPTION DRUG MONITORING REPORT IN PATIENT MILES: Not Applicable Referrals: PCP,None [Primary Care Provider] - Additional Instructions: The following information is given to patients seen in the emergency department who are being discharged to home. This information is to outline your options for follow-up care. We provide all patients seen in our emergency department with a follow-up referral. The need for follow-up, as well as the timing and circumstances, are variable depending upon the specifics of your emergency department visit. If you don't have a primary care physician on staff, we will provide you with a referral. We always advise you to contact your personal physician following an emergency department visit to inform them of the circumstance of the visit and for follow-up with them and/or the need for any referrals to a consulting specialist. The emergency department will also refer you to a specialist when appropriate. This referral assures that you have the opportunity for followup care with a specialist. All of these measure are taken in an effort to provide you with optimal care, which includes your followup. Under all circumstances we always encourage you to contact your private physician who remains a resource for coordinating your care. When calling for followup care, please make the office aware that this follow-up is from your recent emergency room visit. If for any reason you are refused follow-up, please contact the [facility] emergency department at and asked to speak to the emergency department charge nurse. Follow-up dentist JENNIFER Boucher as prescribed Motrin/Tylenol as directed Benadryl as directed hydrocortisone as directed return as needed as discussed
[2018-01-08 23:15] VITALS: BP 133/97
== END 2018-01-08 23:16 | disposition home or self-care (01) ==
LOC: MW.ED 22:50
DX: K04.7 Periapical abscess without sinus (principal); R21 Rash and other nonspecific skin eruption; J45.909 Unspecified asthma, uncomplicated
CPT/HCPCS: 99282

== ENCOUNTER 2018-01-10 19:40 | Emergency (ER) | payer SELFPAY ==
--- NOTE | 2018-01-10 19:59 | EDM.PDOC ---
ED HPI GENERAL MEDICAL PROBLEM - General Chief Complaint: Skin Complaint Stated Complaint: PT HAS RASH ON FOREHEAD Time Seen by Provider: 01/10/18 19:53 - History of Present Illness INITIAL COMMENTS - FREE TEXT/NARRATIVE: HISTORY AND PHYSICAL: History of present illness: History 22-year-old female was seen by myself several days prior for dentalgia and a rash to her left forehead that was pruritic and suspicious for a contact dermatitis from possibly poison rolo [place] or some other similar exposure she returns now for swelling in that region and periorbital. There's been no fever chills nausea vomiting or other complaints Review of systems: As per history of present illness and below otherwise all systems reviewed and negative. Past medical history: As per history of present illness and as reviewed below otherwise noncontributory. Surgical history: As per history of present illness and as reviewed below otherwise noncontributory. Social history: No reported history of drug or alcohol abuse. Family history: As per history of present illness and as reviewed below otherwise noncontributory. Physical exam: HEENT: Patient has similar rashes was observed several days prior there is a small area of clear vesicular fluid again consistent with a contact dermatitis or some small mild surrounding erythema there is no fluctuance or induration she 's had some very mild swelling consistent with extravasated fluid from the forehead to the periorbital area. There is no globe involvement., normocephalic , pupils reactive, negative for conjunctival pallor or scleral icterus, mucous membranes moist, throat clear, neck supple, nontender, trachea midline. Lungs: Clear to auscultation, breath sounds equal bilaterally, chest nontender. Heart: S1S2, regular, negative for clicks, rubs, or JVD. Abdomen: Soft, nondistended, nontender. Negative for masses or hepatosplenomegaly. Negative for costovertebral tenderness. Pelvis: Stable nontender. Genitourinary: Deferred. Rectal: Deferred. Extremities: Atraumatic, negative for cords or calf pain. Neurovascular unremarkable. Neuro: Awake, alert, oriented. Cranial nerves II through XII unremarkable. Cerebellum unremarkable. Motor and sensory unremarkable throughout. Exam nonfocal. Diagnostics: None Therapeutics: None Impression: #1 dentalgia #2 dermatitis Definitive disposition and diagnosis as appropriate pending reevaluation and review of above. Headache Pain Score (Numeric/FACES): 9 - Related Data Allergies Allergy/AdvReac Type Severity Reaction Status Date / Time No Known Allergies Allergy Verified 01/08/18 22:59 Home Meds: Home Meds cephALEXin [Keflex] 01/10/18 [History] Past Medical History - Past Health History Medical/Surgical History: Denies Medical/Surgical History HEENT History: Reports: None Cardiovascular History: Reports: None Respiratory History: Reports: Asthma Other Respiratory History: pneumonia. 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: Neurological History: Reports: Other (See Below) Other Neuro History: syncopal episodes with Psychiatric History: Reports: None Endocrine/Metabolic History: Reports: None - Infectious Disease History Infectious Disease History: Reports: Chicken Pox - Past Surgical History HEENT Surgical History: Reports: None Cardiovascular Surgical History: Reports: None GI Surgical History: Reports: Other (See Below) Other GI Surgeries/Procedures: esophageal surgery under a year of age with feeding tube insertion Female Surgical History: Reports: Section Social & Family History - Family History Family Medical History: Noncontributory Cardiac: Reports: Congenital Septal Defect, Syncope Respiratory: Reports: COPD OBGYN: Reports: Neurological: Reports: CVA Endocrine/Metabolic: Reports: Diabetes, type II - Tobacco Use Smoking Status *Q: Current Every Day Smoker Years of Tobacco use: 4 Packs/Tins Daily: 0.5 - Caffeine Use Caffeine Use: Reports: Soda ED ROS GENERAL - Review of Systems Review Of Systems: ROS reveals no pertinent complaints other than HPI. ED EXAM, SKIN/RASH Exam: See Below (See dictation) Course - Vital Signs Last Recorded V/S: Last Vital Signs Temp 36.6 C 01/10/18 19:53 Pulse 77 01/10/18 19:53 Resp 16 01/10/18 19:53 BP 123/87 01/10/18 19:53 Pulse Ox 98 01/10/18 19:53 Departure - Departure Time of Disposition: 19:58 Disposition: Home, Self-Care 01 Condition: Good Clinical Impression: Dentalgia, Dermatitis - Discharge Information *PRESCRIPTION DRUG MONITORING PROGRAM REVIEWED*: Not Applicable *COPY OF PRESCRIPTION DRUG MONITORING REPORT IN PATIENT MILES: Not Applicable Referrals: PCP,None [Primary Care Provider] - Additional Instructions: The following information is given to patients seen in the emergency department who are being discharged to home. This information is to outline your options for follow-up care. We provide all patients seen in our emergency department with a follow-up referral. The need for follow-up, as well as the timing and circumstances, are variable depending upon the specifics of your emergency department visit. If you don't have a primary care physician on staff, we will provide you with a referral. We always advise you to contact your personal physician following an emergency department visit to inform them of the circumstance of the visit and for follow-up with them and/or the need for any referrals to a consulting specialist. The emergency department will also refer you to a specialist when appropriate. This referral assures that you have the opportunity for followup care with a specialist. All of these measure are taken in an effort to provide you with optimal care, which includes your followup. Under all circumstances we always encourage you to contact your private physician who remains a resource for coordinating your care. When calling for followup care, please make the office aware that this follow-up is from your recent emergency room visit. If for any reason you are refused follow-up, please contact the [facility] emergency department at and asked to speak to the emergency department charge nurse. [facility] [address] [place] [id number] Continue Keflex as prescribed hydrocortisone as directed Benadryl as directed follow-up clinic as discussed return as needed as discussed
[2018-01-10 20:00] VITALS: BP 123/87
== END 2018-01-10 20:20 | disposition home or self-care (01) ==
LOC: MW.ED 19:40
DX: K08.89 Other specified disorders of teeth and supporting structures (principal); L30.9 Dermatitis, unspecified; J45.909 Unspecified asthma, uncomplicated; F17.210 Nicotine dependence, cigarettes, uncomplicated
CPT/HCPCS: 99281; 99283

== ENCOUNTER 2020-10-10 17:26 | Emergency (ER) | payer SELFPAY ==
[2020-10-10 17:43] VITALS: BP 128/71; PULSE 85
[2020-10-10] MEDS ORDERED: Albuterol/Ipratropium 3.0-0.5 MG/3 ML Neb Soln NEB ONE (17:43)
[2020-10-10] MEDS ORDERED: predniSONE 20 MG Tab PO ONE (17:44)
--- NOTE | 2020-10-10 17:47 | EDM.PDOC ---
ED HPI GENERAL MEDICAL PROBLEM - General Stated Complaint: PROBLEMS WITH ASTHMA Time Seen by Provider: 10/10/20 17:41 - History of Present Illness INITIAL COMMENTS - FREE TEXT/NARRATIVE: History of present illness: [] Patient with history of asthma has 2 days of worsening shortness of breath and cough with wheeze. She is short of breath on exertion. It is moderately severe. Nothing makes it better. She uses an inhaler without a chamber. She is out of medicine for her nebulizer. She is awaiting reevaluation by her local doctor. Her shortness of breath and wheeze he is not associated with fever chills or phlegm. The patient denies and has a prior tubal ligation. Review of systems: As per history of present illness and below otherwise all systems reviewed and negative. Past medical history: As per history of present illness and as reviewed below otherwise noncontributory. Surgical history: As per history of present illness and as reviewed below otherwise noncontributory. Social history: No reported history of drug or alcohol abuse. Family history: As per history of present illness and as reviewed below otherwise noncontributory. Physical exam: Constitutional - well developed, well-nourished and in no acute distress HEENT - normocephalic, no evidence of trauma - external nose and mouth normal - no mass in neck and no JVD - mucosae moist EYES - full EOM, PERRL, no icterus - no evidence of inflammation, injection, or drainage Respiratory -slightly prolonged expiratory phase of respiration. Diminished breath sounds throughout. Coarse wheezes on expiration throughout. Cardiovascular - Regular Rhythm with S1 and S2 appreciated and no murmur, gallop or rub. GI - abdomen soft without distension or organomegaly - normal bowel sounds - no guard or rebound Musculoskeletal no gross deformity of long bones or joints - no tenderness, swelling or edema Neurologic - Alert and oriented times four - CN II-XII grossly intact - motor sensory and coordination symmetrically normal Psychiatric - appropriate mood and affect with normal thought content Hematologic - No petechiae or purpura - mucosa appropriate color and sclera not pale - normal nail bed color and refill Integument - no rash or evidence of trauma - normal turgor Diagnostics: [] Therapeutics: [] Impression: [] Plan: [] Definitive disposition and diagnosis as appropriate pending reevaluation and review of above. - Related Data Allergies Allergy/AdvReac Type Severity Reaction Status Date / Time No Known Allergies Allergy Verified 10/10/20 17:39 Home Meds: Home Meds cephALEXin [Keflex] 1 cap PO QID 01/10/18 [History] predniSONE [Prednisone] 60 mg PO DAILY #21 tablet 10/10/20 [Rx] Past Medical History - Past Health History Medical/Surgical History: Denies Medical/Surgical History HEENT History: Reports: None Cardiovascular History: Reports: None Respiratory History: Reports: Asthma Other Respiratory History: pneumonia. 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: Neurological History: Reports: Other (See Below) Other Neuro History: syncopal episodes with Psychiatric History: Reports: None Endocrine/Metabolic History: Reports: None - Infectious Disease History Infectious Disease History: Reports: Chicken Pox - Past Surgical History HEENT Surgical History: Reports: None Cardiovascular Surgical History: Reports: None GI Surgical History: Reports: Other (See Below) Other GI Surgeries/Procedures: esophageal surgery under a year of age with feeding tube insertion Female Surgical History: Reports: Section Social & Family History - Family History Family Medical History: No Pertinent Family History Cardiac: Reports: Congenital Septal Defect, Syncope Respiratory: Reports: COPD OBGYN: Reports: Neurological: Reports: CVA Endocrine/Metabolic: Reports: Diabetes, type II - Caffeine Use Caffeine Use: Reports: Soda ED ROS GENERAL - Review of Systems Review Of Systems: Comprehensive ROS is negative, except as noted in HPI. ED EXAM, GENERAL - Physical Exam Exam: See Below Free Text/Narrative:: My physical exam is in the HPI. Course - Vital Signs Text/Narrative:: Patient proved partially with her nebulizer incompletely with her phone inhaler and the extension chamber after her steroids that started to kick in. Discharged in satisfactory condition. Last Recorded V/S: Last Vital Signs Temp 36.4 C 10/10/20 17:40 Pulse 85 10/10/20 17:40 Resp 20 10/10/20 17:40 BP 128/71 10/10/20 17:40 Pulse Ox 97 10/10/20 17:40 - Orders/Labs/Meds Orders: Active Orders 24 hr Category Date Time Status Communication Order [RC] STAT Care 10/10/20 17:44 Active RT Aerosol Therapy [RC] ASDIRECTED Care 10/10/20 17:44 Active Meds: Medications Discontinued Medications Generic Name Dose Route Start Last Admin Trade Name Freq PRN Reason Stop Dose Admin Albuterol/Ipratropium 3 ml 10/10/20 17:43 10/10/20 17:51 Albuterol/Ipratropium 3.0-0.5 Mg/3 Ml Neb Soln NEB 10/10/20 17:44 3 ml ONETIME ONE Administration Prednisone 60 mg 10/10/20 17:44 10/10/20 17:51 Prednisone 20 Mg Tab PO 10/10/20 17:45 60 mg ONETIME ONE Administration Departure - Departure Time of Disposition: 18:48 Disposition: Home, Self-Care 01 Condition: Good Clinical Impression: Exacerbation of asthma - Discharge Information Prescriptions: predniSONE [Prednisone] 60 mg PO DAILY #21 tablet Instructions: Asthma, Adult, [id number] Referrals: PCP,None [Primary Care Provider] - Additional Instructions: None of the medicines I gave you would be as helpful as to stop smoking and drink more fluids. You should use the extension chamber when you using your inhaler. [facility] - Primary Care [address] [place] [address] [place] [address] The following information is given to patients seen in the emergency department who are being discharged to home. This information is to outline your options for follow-up care. We provide all patients seen in our emergency department with a follow-up referral. The need for follow-up, as well as the timing and circumstances, are variable depending upon the specifics of your emergency department visit. If you don't have a primary care physician on staff, we will provide you with a referral. We always advise you to contact your personal physician following an emergency department visit to inform them of the circumstance of the visit and for follow-up with them and/or the need for any referrals to a consulting specialist. The emergency department will also refer you to a specialist when appropriate. This referral assures that you have the opportunity for follow-up care with a specialist. All of these measure are taken in an effort to provide you with optimal care, which includes your follow-up. Under all circumstances we always encourage you to contact your private physician who remains a resource for coordinating your care. When calling for follow-up care, please make the office aware that this follow-up is from your recent emergency room visit. If for any reason you are refused follow-up, please contact the [facility] Emergency Department at and asked to speak to the emergency department charge nurse. Sepsis Event Note (ED) - Evaluation Sepsis Screening Result: No Definite Risk - Focused Exam Vital Signs: Vital Signs Temp Pulse Resp BP Pulse Ox 10/10/20 17:40 36.4 C 85 20 128/71 97 - My Orders Last 24 Hours: My Active Orders 10/10/20 17:44 Communication Order [RC] STAT RT Aerosol Therapy [RC] ASDIRECTED - Assessment/Plan Last 24 Hours: My Active Orders 10/10/20 17:44 Communication Order [RC] STAT RT Aerosol Therapy [RC] ASDIRECTED
== END 2020-10-10 19:09 | disposition home or self-care (01) ==
LOC: MW.ED 17:26
DX: J45.901 Unspecified asthma with (acute) exacerbation (principal)
CPT/HCPCS: 94640; 99284; A9270; 99283; J7620-GY

== ENCOUNTER 2022-02-16 19:28 | Emergency (ER) | payer OTHER ==
[2022-02-16 21:42] LABS: CORONAVIRUS COVID-19 NAA POSITIVE (NEGATIVE); INFLUENZA A NAA NEGATIVE (NEGATIVE); INFLUENZA B NAA NEGATIVE (NEGATIVE)
[2022-02-16] MEDS ORDERED: Albuterol 8 GM Inhaler INH STA (21:57)
[2022-02-16] MEDS ORDERED: Ketorolac 30 MG/ML SDV IM ONE (22:04)
[2022-02-16 22:37] VITALS: BP 131/75; PULSE 71
== END 2022-02-16 22:37 | disposition home or self-care (01) ==
LOC: MW.ED 19:28
DX: U07.1 COVID-19 (principal)
CPT/HCPCS: 0240U; 96372; 99285; A9270; J1885; 99283

== ENCOUNTER 2022-04-26 14:35 | Emergency (ER) | payer OTHER ==
[2022-04-26] MEDS ORDERED: Ibuprofen 400 MG Tab PO ONE (17:44)
[2022-04-26] MEDS ORDERED: Lidocaine 5% 700 MG Patch TOP ONE (17:44)
[2022-04-26] MEDS ORDERED: Acetaminophen 325 MG Tab PO ONE (17:44)
[2022-04-26 19:09] VITALS: BP 122/85; PULSE 67
== END 2022-04-26 19:09 | disposition home or self-care (01) ==
LOC: MW.ED 14:35
DX: R51.9 Headache, unspecified (principal); M54.2 Cervicalgia; M54.6 Pain in thoracic spine; J45.909 Unspecified asthma, uncomplicated; Z87.891 Personal history of nicotine dependence; W10.9XXA Fall (on) (from) unspecified stairs and steps, initial encounter
CPT/HCPCS: 70450; 71250; 72125; 72128; 99284; A9270